=== PATIENT | male | born 1965 ===

== ENCOUNTER 2020-05-30 10:45 | Inpatient (IN) | payer OTHER ==
[~2020-05-30] VITALS: Ht 180.3 cm; Wt 90.7 kg
[2020-05-30] MEDS ORDERED: PEPCID AC20 MG PO (15:31)
[2020-05-30] MEDS ORDERED: COZAAR50 MG PO (15:31)
[2020-05-30] MEDS ORDERED: TENORMIN50 M1 PO (15:31)
[2020-05-30] MEDS ORDERED: TAMS0.4C PO (15:32)
[2020-05-30] MEDS ORDERED: PROSCAR5 MG PO (15:32)
[2020-06-08] MEDS ORDERED: INTESTINEX680 M1 PO (08:04)
[2020-06-08] MEDS ORDERED: OXYC1TAB9 PO (08:04)
[2020-06-08] MEDS ORDERED: DICY20TA PO (08:05)
== END 2020-06-08 12:06 | disposition home or self-care (01) | DRG 330 ==
LOC: SURH 06-02 07:00 → O/R 06-02 08:29 → SURH 06-02 10:45
PROVIDERS: ADMIT Surgery; ATTEND Surgery
PROC: 07BB4ZZ Excision of Mesenteric Lymphatic, Percutaneous Endoscopic Approach (ICD-10-PCS; 2020-06-02)
PROC: 0DTF4ZZ Resection of Right Large Intestine, Percutaneous Endoscopic Approach (ICD-10-PCS; principal; 2020-06-02 07:00)
PROC: B24BYZZ Ultrasonography of Heart with Aorta using Other Contrast (ICD-10-PCS; 2020-06-06)
DX: D12.2 Benign neoplasm of ascending colon (principal); K91.89 Other postprocedural complications and disorders of digestive system; K56.7 Ileus, unspecified; I48.91 Unspecified atrial fibrillation; D12.1 Benign neoplasm of appendix; R59.9 Enlarged lymph nodes, unspecified; I10 Essential (primary) hypertension; Z86.16 Personal history of COVID-19; M51.36 Other intervertebral disc degeneration, lumbar region